=== PATIENT | female | born 1985 | race Caucasian/White ===

== ENCOUNTER → 2020-04-14 16:26 | Outpatient (CLI) | payer MEDICAID, SELFPAY ==
--- NOTE | 2020-04-14 16:28 | DI.RAD.S_ITS ---
PROCEDURE: XR TOE LT MIN 2V INDICATIONS: left toe pain TECHNIQUE: 3 views of the left toe(s) acquired. COMPARISON: None. FINDINGS: Bones: No fracture. 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 Soft tissues: No suspicious soft tissue densities. IMPRESSION: No fracture. If the patient's symptoms do not improve recommend followup radiographs in 10 days to assess for healing sclerosis/occult injury. 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 Dictated by: Kavon De La O M.D. on 04/14/2020 at 16:51 Approved by: Kavon De La O M.D. on 04/14/2020 at 16:53
--- NOTE | 2020-04-14 16:28 | DI.RAD.S_ITS ---
PROCEDURE: XR FOOT LT MIN 3V INDICATIONS: left foot pain TECHNIQUE: 3 views of the foot were acquired. COMPARISON: None. FINDINGS: Bones: No fracture. 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 Soft tissues: No tibiotalar joint effusion. Achilles tendon appears normal. IMPRESSION: No acute abnormality identified. If the patient's pain or other symptoms persist, consider further evaluation with MRI Dictated by: Kavon De La O M.D. on 04/14/2020 at 16:54 Approved by: Kavon De La O M.D. on 04/14/2020 at 16:55
== END ==
PROVIDERS: Family Provider Advanced Practice Midwife; PCP Advanced Practice Midwife; Referring Provider Physician Assistant; Visit Provider Physician Assistant
DX: M79.672 Pain in left foot (principal); M79.675 Pain in left toe(s)
CPT/HCPCS: 73630; 73660

== ENCOUNTER → 2020-07-25 12:50 | Outpatient (CLI) | payer OTHER, SELFPAY ==
--- NOTE | 2020-07-25 12:53 | DI.RAD.S_ITS ---
PROCEDURE: XR FOOT LT 2V INDICATIONS: left third and fourth toe pain after injury TECHNIQUE: 2 views of the foot were acquired. COMPARISON: [facility], CR, XR FOOT LT MIN 3V, 04/14/2020, 16:21. FINDINGS: Bones: No fractures or dislocations. No suspicious bony lesions. Soft tissues: No tibiotalar joint effusion. Achilles tendon appears normal. IMPRESSION: No acute osseous abnormality. Dictated by: Royer James D.O. on 07/25/2020 at 12:14 Approved by: Royer James D.O. on 07/25/2020 at 12:15
== END ==
PROVIDERS: Family Provider Advanced Practice Midwife; PCP Advanced Practice Midwife; Referring Provider Nurse Practitioner; Visit Provider Nurse Practitioner
DX: M79.675 Pain in left toe(s) (principal); S99.922A Unspecified injury of left foot, initial encounter; X58.XXXA Exposure to other specified factors, initial encounter
CPT/HCPCS: 73620

== ENCOUNTER → 2024-10-16 16:12 | Outpatient (CLI) | payer SELFPAY | PROVIDERS: Family Provider Advanced Practice Midwife; PCP Advanced Practice Midwife; Visit Provider Nurse Practitioner Family | DX: J02.9 Acute pharyngitis, unspecified (principal) | CPT/HCPCS: 87070; 87077; 87147 ==

== ENCOUNTER → 2024-11-04 10:36 | Outpatient (CLI) | payer SELFPAY | PROVIDERS: Family Provider Advanced Practice Midwife; PCP Advanced Practice Midwife; Visit Provider Nurse Practitioner Family | DX: N94.89 Other specified conditions associated with female genital organs and menstrual cycle (principal); N94.9 Unspecified condition associated with female genital organs and menstrual cycle | CPT/HCPCS: 87210 ==

== ENCOUNTER → 2024-11-10 10:05 | Outpatient (CLI) | payer SELFPAY | PROVIDERS: Family Provider Advanced Practice Midwife; PCP Advanced Practice Midwife; Visit Provider Nurse Practitioner Family | DX: J02.9 Acute pharyngitis, unspecified (principal) | CPT/HCPCS: 87070 ==

== ENCOUNTER → 2024-11-10 10:10 | Outpatient (CLI) | payer SELFPAY ==
[2024-11-10 10:45] LABS: Pregnancy Test Urine Negative (Negative)
[2024-11-10 12:24] LABS: Urine N gonorrhoeae NOT DETECTED
[2024-11-10 12:25] LABS: Urine Chlamydia NOT DETECTED
[2024-11-11 15:26] LABS: Hepatitis B Surface Antigen NEGATIVE s/c (NEGATIVE)
[2024-11-11 15:43] LABS: HIV 1 & 2 Ab/Ag 4th Gen Combo NEGATIVE (NEGATIVE); Hep C Virus Ab w/Reflex Quant NEGATIVE s/c (NEGATIVE)
[2024-11-20 13:00] LABS: HSV1IGG 0
[2024-11-20 13:02] LABS: HSV 2 IGG AB 0
[2024-11-20 13:03] LABS: RPR Screen REACTIVE
[2024-11-20 13:06] LABS: RPR Quant + RPR Abs NON REACTIVE
== END ==
PROVIDERS: Family Provider Advanced Practice Midwife; Referring Provider Nurse Practitioner Family; Visit Provider Nurse Practitioner Family
DX: N94.9 Unspecified condition associated with female genital organs and menstrual cycle (principal); J02.9 Acute pharyngitis, unspecified
CPT/HCPCS: 36415; 81025; 86592; 86695; 86696; 86803; 87070; 87077; 87147; 87340; 87389; 87491; 87591